=== PATIENT | female | born 1965 | race Caucasian/White ===

== ENCOUNTER → 2017-01-16 | Outpatient (REF) | payer OTHER ==
[2017-01-16 11:33] LABS: BASO # 0.1 K/mm3 (0.0-0.2); BASO % 0.9 % (0.0-1.0); EOS # 0.4 K/mm3 (0.0-0.50); EOS % 5.6 % (0.0-3.0); LARGE UNSTAINED CELL # 0.1 K/mm3 (0.0-0.4); LARGE UNSTAINED CELL % 1.8 % (0.0-4.0); LYMPH # 3.3 K/mm3 (1.5-4.5); LYMPH % 48.5 % (24.0-44.0); MEAN CORPUSCULAR HEMOGLOBIN 25.2 pg (27.0-33.0); MEAN CORPUSCULAR HGB CONC 31.7 g/dl (32.0-36.5); MEAN CORPUSCULAR VOLUME 79.4 fl (80.0-96.0); MONO # 0.3 K/mm3 (0.0-0.8); MONO % 4.9 % (0.0-5.0); NEUTROPHILS # 2.5 K/mm3 (1.8-7.7); NEUTROPHILS % 38.4 % (36.0-66.0); PLATELET COUNT, AUTOMATED 303 k/mm3 (150-450); RED CELL DISTRIBUTION WIDTH 16.9 % (11.5-14.5); WHITE BLOOD COUNT 6.6 K/mm3 (4.0-10.0)
[2017-01-16 12:13] LABS: VITAMIN B12 LEVEL 267 PG/ML
[2017-01-16 12:20] LABS: ALBUMIN 3.8 GM/DL (3.2-5.2); ALBUMIN/GLOBULIN RATIO 1.09 (1.00-1.93); ALKALINE PHOSPHATASE 152 U/L (45-117); ALT/SGPT 47 U/L (12-78); ANION GAP 10 MEQ/L (8-16); AST/SGOT 64 U/L (15-37); BILIRUBIN,TOTAL 0.3 MG/DL (0.2-1.0); BLOOD UREA NITROGEN 12 MG/DL (7-18); CALCIUM LEVEL 8.8 MG/DL (8.5-10.1); CARBON DIOXIDE LEVEL 25 MEQ/L (21-32); CHLORIDE LEVEL 99 MEQ/L (98-107); CREATININE FOR GFR 0.55 MG/DL (0.55-1.02); GLOMERULAR FILTRATION RATE > 60.0 (>51); GLUCOSE, FASTING 108 MG/DL (70-105); POTASSIUM SERUM 4.2 MEQ/L (3.5-5.1); SODIUM LEVEL 134 MEQ/L (136-145); TOTAL PROTEIN 7.3 GM/DL (6.4-8.2)
[2017-01-16 12:40] LABS: FOLATE 7.8 NG/ML
[2017-01-16 12:50] LABS: ERYTHROCYTE SEDIMENTATION RATE 28 mm/hr (0-30)
[2017-01-19 00:07] LABS: VITAMIN E LEVEL 5.1 mg/L (5.3-16.8)
== END ==
LOC: M LABNEURO 11:09
PROVIDERS: ATTEND Psychiatry & Neurology Neurology
DX: R41.0 Disorientation, unspecified (principal); R20.2 Paresthesia of skin; E07.9 Disorder of thyroid, unspecified; D51.9 Vitamin B12 deficiency anemia, unspecified

== ENCOUNTER → 2017-06-12 | Outpatient (REF) | payer OTHER ==
[2017-06-12 16:42] LABS: BASO # 0.1 10^3/uL (0.0-0.2); BASO % 0.7 % (0.0-1.0); EOS # 0.4 10^3/uL (0.0-0.50); EOS % 4.6 % (0.0-3.0); IMMATURE GRANULOCYTE % 0.2 % (0-0); LYMPH % 31.3 % (24.0-44.0); MEAN CORPUSCULAR HEMOGLOBIN 22.9 pg (27.0-33.0); MEAN CORPUSCULAR HGB CONC 29.6 g/dl (32.0-36.5); MEAN CORPUSCULAR VOLUME 77.3 fl (80.0-96.0); MONO # 0.7 10^3/uL (0.0-0.8); MONO % 7.8 % (0.0-5.0); NEUTROPHILS # 5.3 10^3/uL (1.8-7.7); NEUTROPHILS % 55.4 % (36.0-66.0); PLATELET COUNT, AUTOMATED 333 10^3/uL (150-450); RED CELL DISTRIBUTION WIDTH 15.9 % (11.5-14.5); WHITE BLOOD COUNT 9.5 10^3/uL (4.0-10.0)
[2017-06-12 17:22] LABS: ALBUMIN 3.9 GM/DL (3.2-5.2); ALBUMIN/GLOBULIN RATIO 1.08 (1.00-1.93); ALKALINE PHOSPHATASE 134 U/L (45-117); ALT/SGPT 51 U/L (12-78); ANION GAP 8 MEQ/L (8-16); AST/SGOT 33 U/L (7-37); BILIRUBIN,TOTAL 0.3 MG/DL (0.2-1.0); BLOOD UREA NITROGEN 10 MG/DL (7-18); CALCIUM LEVEL 9.3 MG/DL (8.5-10.1); CARBON DIOXIDE LEVEL 30 MEQ/L (21-32); CHLORIDE LEVEL 101 MEQ/L (98-107); CREATININE FOR GFR 0.68 MG/DL (0.55-1.02); GLOMERULAR FILTRATION RATE > 60.0 (>51); GLUCOSE, FASTING 115 MG/DL (70-105); POTASSIUM SERUM 4.5 MEQ/L (3.5-5.1); SODIUM LEVEL 139 MEQ/L (136-145); TOTAL PROTEIN 7.5 GM/DL (6.4-8.2)
[2017-06-12 20:02] LABS: VITAMIN B12 LEVEL 458 PG/ML (247-911)
== END ==
LOC: M LABNEURO 14:47
PROVIDERS: ATTEND Psychiatry & Neurology Neurology
DX: R41.0 Disorientation, unspecified (principal); E53.9 Vitamin B deficiency, unspecified; R20.0 Anesthesia of skin

== ENCOUNTER → 2018-07-19 | Outpatient (REF) | payer OTHER | LOC: M LAB REF 11:13 | PROVIDERS: ATTEND Otolaryngology | DX: D37.09 Neoplasm of uncertain behavior of other specified sites of the oral cavity (principal) ==

== ENCOUNTER → 2019-04-10 | Outpatient (CLI) | payer OTHER ==
--- NOTE | 2019-04-10 13:23 | REP ---
Clinical: Lower back pain. Technique: AP, lateral, bilateral oblique, and coned-down views. Findings: Alignment and lordosis is maintained. The vertebral bodies including transverse process and spinous processes are intact and normal. There is no evidence for acute fracture / compression injury or subluxation. No evidence for spondylolysis or spondylolisthesis. No significant degenerative change is noted. Impression: Normal age-appropriate lumbosacral spine radiograph series. Electronically Signed by Primitivo Martinez MD 04/10/2019 01:14 P
--- NOTE | 2019-04-10 13:28 | REP ---
Clinical: Bilateral knee pain. Technique: AP, lateral, bilateral oblique and sunrise views of the right and left knee. Findings: Left knee demonstrates anterior swelling and possible small effusion along with lateral patellar osteophyte and mild patellofemoral joint space narrowing as well as increased sclerosis along the anterior patellar margin suggesting tendinopathy. No acute fracture or dislocation. Right knee is relatively age-appropriate and without obvious degenerative changes. No acute fracture dislocation. Impression: Mild degenerative changes of the left knee. Electronically Signed by Primitivo Martinez MD 04/10/2019 01:20 P
== END ==
LOC: M RAD 12:01
PROVIDERS: ATTEND Physician Assistant
DX: M17.12 Unilateral primary osteoarthritis, left knee (principal)

== ENCOUNTER → 2019-07-21 | Outpatient (CLI) | payer OTHER ==
--- NOTE | 2019-07-22 09:39 | REP ---
MRI lumbar spine: 07/21/2019. Indication: Low back pain. New comparison: None. Technique: Multiplanar short and long TR sequences of the lumbar spine were performed without IV Gadolinium. Findings: Vertebral body alignment is anatomic. Dessication is present at L5/S1 and to a lesser extent L2/L3. No worrisome marrow or cord signal abnormalities are present. No significant paraspinal soft tissue abnormalities are present. L1/L2, L2/L3, L3/L4 and L4/L5: There is no focal disc herniation or significant spinal canal / neural foraminal narrowing. L5/S1: There is a small posterior central annular fissure. Mild diffuse disc bulge is present. Mild spinal canal and neural foraminal narrowing is present. Impression: Degenerative sequelae at L5/S1 without significant spinal canal narrowing/nerve root impingement. The neural foramina are patent throughout. Electronically Signed by Tushar Arnold DO 07/22/2019 09:30 A
== END ==
LOC: M RAD 16:22
PROVIDERS: ATTEND Physician Assistant
DX: M51.37 Other intervertebral disc degeneration, lumbosacral region (principal)

== ENCOUNTER → 2020-02-03 | Outpatient (REF) | payer OTHER ==
[2020-02-03 15:57] LABS: APPEARANCE, URINE HAZY (CLEAR); BACTERIA, URINE AUTO NEGATIVE (NEGATIVE); BILIRUBIN, URINE AUTO NEGATIVE (NEGATIVE); BLOOD, URINE BLOOD NEGATIVE (NEGATIVE); CALCIUM OXALATE CRYSTALS LARGE; COLOR, URINE AMBER (YELLOW); GLUCOSE, URINE (UA) AUTO NEGATIVE (NEGATIVE); KETONE, URINE AUTO NEGATIVE (NEGATIVE); LEUKOCYTE ESTERASE, URINE AUTO NEGATIVE (NEGATIVE); MUCUS, URINE SMALL (NEGATIVE); NITRITE, URINE AUTO NEGATIVE (NEGATIVE); PROTEIN, URINE AUTO NEGATIVE (NEGATIVE); RBC, URINE AUTO 1 /HPF (0-3); SPECIFIC GRAVITY URINE AUTO 1.018 (1.002-1.035); SQUAMOUS EPITHELIAL CELL UR AU 1 /HPF (0-6); WBC, URINE AUTO 1 /HPF (0-3)
== END ==
LOC: M SMT 14:46
PROVIDERS: ATTEND Nurse Practitioner Women's Health
DX: N39.41 Urge incontinence (principal)

== ENCOUNTER → 2020-05-26 | Outpatient (CLI) | payer OTHER ==
[~2020-05-26] MED LIST: AMIT25TA; AMLO1TAB24; BUPR15TASR; CRES10TA; DULO1CAP5 PO; E-Z-GAS II EFFERVESCENT PACKET (SODIUM BICARB./CITRIC ACID/SIMETHICONE) As Ordered ONE; E-Z-HD 98% w/w 340GM SUSP BTL As Ordered ONE; E-Z-PAQUE 96% w/w SUSP 176GM BTL As Ordered ONE; GABA600T4; HYDR50TA70; LOTR52CA PO; OMEP-221; SYNT100T; SYNT88TA2; TIZA4TAB4; TRAM50TA2; VITA-157 PO; VITA50005; VITACAP8 PO
--- NOTE | 2020-05-26 15:43 | REP ---
INDICATION: DYSPHAGIA COMPARISON: None TECHNIQUE: This procedure was performed by Margaret Merritt [facility], under the direct supervision of Dr. Hoover. Images were reviewed with Dr. Hoover prior to dictation. Liquid barium was given in the erect position, as well as in the prone oblique position in order to perform a single contrast upper GI examination, due to the patient's history of Aleena-en-Y surgery. FINDINGS: A single view PA chest x-ray is submitted as a vc++ developer film. There appears to be no change since the previous text chest x-ray dated 08/10/2008. The oral and pharyngeal stages of deglutition were unremarkable. However flash laryngeal penetration was visualized. Esophageal transport is prompt and efficient and there is no evidence of esophagitis, stricture, or mucosal ring. There is a small hiatal hernia. Gastroesophageal reflux was visualized to the level of the thoracic inlet. IMPRESSION: 1. Flash laryngeal penetration. 2. Small hiatal hernia. 3. Gastroesophageal reflux to the level of the thoracic inlet. 0.3 minutes of fluoroscopy time was utilized for this procedure. Some fluoroscopic images are performed with last image hold technology. These images require no additional radiation. <Electronically signed by Margaret Merritt > 05/26/20 1522 <Electronically signed by Srinivas Hoover > 05/26/20 0183
== END ==
LOC: M RAD 07:16
PROVIDERS: ATTEND Nurse Practitioner
DX: K21.9 Gastro-esophageal reflux disease without esophagitis (principal); R13.10 Dysphagia, unspecified

== ENCOUNTER → 2020-06-05 | Outpatient (CLI) | payer OTHER ==
[~2020-06-05] MED LIST changes: -E-Z-GAS II EFFERVESCENT PACKET (SODIUM BICARB./CITRIC ACID/SIMETHICONE) As Ordered ONE; -E-Z-HD 98% w/w 340GM SUSP BTL As Ordered ONE; -E-Z-PAQUE 96% w/w SUSP 176GM BTL As Ordered ONE
== END ==
LOC: M LABSMTC 09:10
PROVIDERS: ATTEND Anesthesiology
DX: Z01.818 Encounter for other preprocedural examination (principal); Z20.828 Contact with and (suspected) exposure to other viral communicable diseases
CPT/HCPCS: C9803; U0003

== ENCOUNTER 2020-06-10 07:53 | Day surgery (SDC) | payer OTHER ==
[~2020-06-10] VITALS: Ht 167.6 cm; Wt 112.5 kg
[~2020-06-10 07:53] MED LIST changes: +LIDOCAINE 2% 100MG/5ML SDV (FOR ANES.) As Ordered ONE; +NS 1,000 ML IV ONE
[2020-06-10] MEDS ORDERED: fentaNYL 100 MCG/2 ML INJECTION (J3010) As Ordered ONE (08:47)
[2020-06-10] MEDS ORDERED: propofoL 500 MG/50 ML VIAL As Ordered ONE (08:48)
--- NOTE | 2020-06-10 09:25 | ROOR ---
Patient Name: Madison More Procedure Date: 06/10/2020 9:04 AM Date of : 1965 Age: 54 Room: [facility] Gender: Female Note Status: Finalized Procedure: Upper GI endoscopy Indications: Oropharyngeal phase dysphagia Providers: Maxwell London Jr, MD Referring MD: LAVERNE WEN Requesting Provider: Medicines: Propofol per Anesthesia Complications: No immediate complications. Procedure: Pre-Anesthesia Assessment: - Prior to the procedure, a History and Physical was performed, and patient medications and allergies were reviewed. The patient is competent. The risks and benefits of the procedure and the sedation options and risks were discussed with the patient. All questions were answered and informed consent was obtained. Patient identification and proposed procedure were verified by the physician and the nurse in the pre-procedure area and in the procedure room. Mental Status Examination: alert and oriented. Airway Examination: normal oropharyngeal airway and neck mobility. Respiratory Examination: clear to auscultation. CV Examination: normal. ASA Grade Assessment: III - A patient with severe systemic disease. After reviewing the risks and benefits, the patient was deemed in satisfactory condition to undergo the procedure. The anesthesia plan was to use moderate sedation / analgesia (conscious sedation). Immediately prior to administration of medications, the patient was re-assessed for adequacy to receive sedatives. The heart rate, respiratory rate, oxygen saturations, blood pressure, adequacy of pulmonary ventilation, and response to care were monitored throughout the procedure. The physical status of the patient was re-assessed after the procedure. The Endoscope was introduced through the mouth, and advanced to the jejunum. The upper GI endoscopy was accomplished without difficulty. The patient tolerated the procedure well. Findings: The upper third of the esophagus, middle third of the esophagus and lower third of the esophagus were normal. Evidence of a gastric bypass was found. A gastric pouch with a normal size was found. The staple line appeared intact. The gastrojejunal anastomosis was characterized by healthy appearing mucosa. This was traversed. The [id number] limb was characterized by healthy appearing mucosa. A single small semi-sessile polyp with no bleeding and no stigmata of recent bleeding was found in the gastric body. The polyp was removed with a cold biopsy forceps. Polyp resection was incomplete. The resected tissue was retrieved. The examined jejunum was normal. Impression: - Normal upper third of esophagus, middle third of esophagus and lower third of esophagus. - Gastric bypass with a normal-sized pouch and intact staple line. Gastrojejunal anastomosis characterized by healthy appearing mucosa. - A single gastric polyp. Incomplete resection. Resected tissue retrieved. - Normal examined jejunum. Recommendation: - Discharge patient to home (ambulatory). - Return to my office in 2 weeks. Maxwell London MD Maxwell London Jr, MD 06/10/2020 9:25:23 AM Electronically signed by Maxwell London Jr, MD Number of Addenda: 0 Note Initiated On: 06/10/2020 9:04 AM Estimated Blood Loss: Estimated blood loss: none.
[2020-06-10] MEDS ORDERED: propofoL 200 MG/20 ML VIAL As Ordered ONE (09:44)
--- NOTE | 2020-06-10 09:45 | ROOR ---
Patient Name: Madison More Procedure Date: 06/10/2020 9:07 AM Date of : 1965 Age: 54 Room: [facility] Gender: Female Note Status: Finalized Procedure: Colonoscopy Indications: Screening for colorectal malignant neoplasm Providers: Maxwell London Jr, MD Referring MD: LAVERNE WEN Requesting Provider: Medicines: Propofol per Anesthesia Complications: No immediate complications. Procedure: Pre-Anesthesia Assessment: - Prior to the procedure, a History and Physical was performed, and patient medications and allergies were reviewed. The patient is competent. The risks and benefits of the procedure and the sedation options and risks were discussed with the patient. All questions were answered and informed consent was obtained. Patient identification and proposed procedure were verified by the physician and the nurse in the pre-procedure area and in the procedure room. Mental Status Examination: alert and oriented. Airway Examination: normal oropharyngeal airway and neck mobility. Respiratory Examination: clear to auscultation. CV Examination: normal. ASA Grade Assessment: III - A patient with severe systemic disease. After reviewing the risks and benefits, the patient was deemed in satisfactory condition to undergo the procedure. The anesthesia plan was to use moderate sedation / analgesia (conscious sedation). Immediately prior to administration of medications, the patient was re-assessed for adequacy to receive sedatives. The heart rate, respiratory rate, oxygen saturations, blood pressure, adequacy of pulmonary ventilation, and response to care were monitored throughout the procedure. The physical status of the patient was re-assessed after the procedure. The Colonoscope was introduced through the anus and advanced to the cecum, identified by appendiceal orifice and ileocecal valve. The colonoscopy was performed without difficulty. The patient tolerated the procedure well. The quality of the bowel preparation was adequate. Findings: The rectum, recto-sigmoid colon, sigmoid colon, descending colon, transverse colon, hepatic flexure, cecum, appendiceal orifice and ileocecal valve appeared normal. A diminutive polyp was found in the ascending colon. The polyp was sessile. The polyp was removed with a jumbo cold forceps. Resection and retrieval were complete. Non-bleeding external and internal hemorrhoids were found during endoscopy. The hemorrhoids were moderate. Impression: - The rectum, recto-sigmoid colon, sigmoid colon, descending colon, transverse colon, hepatic flexure, cecum, appendiceal orifice and ileocecal valve are normal. - One diminutive polyp in the ascending colon, removed with a jumbo cold forceps. Resected and retrieved. - Non-bleeding external and internal hemorrhoids. Recommendation: - Repeat colonoscopy in 5-10 years for surveillance of multiple polyps. Maxwell London MD Maxwell London Jr, MD 06/10/2020 9:44:37 AM Electronically signed by Maxwell London Jr, MD Number of Addenda: 0 Note Initiated On: 06/10/2020 9:07 AM Estimated Blood Loss: Estimated blood loss: none.
[2020-06-10 10:09] VITALS: BP 133/86
== END 2020-06-10 10:16 | disposition home or self-care (01) ==
LOC: M OPP 07:53
PROVIDERS: ATTEND Surgery
DX: Z12.11 Encounter for screening for malignant neoplasm of colon (principal); K64.8 Other hemorrhoids; K63.5 Polyp of colon; Z98.84 Bariatric surgery status; K31.7 Polyp of stomach and duodenum; R13.12 Dysphagia, oropharyngeal phase; Z79.899 Other long term (current) drug therapy; Z88.0 Allergy status to penicillin; Z88.8 Allergy status to other drugs, medicaments and biological substances; Z87.891 Personal history of nicotine dependence
CPT/HCPCS: 43239; 45380; 88305; J3010

== ENCOUNTER → 2020-07-13 | Outpatient (CLI) | payer SELFPAY ==
[~2020-07-13] MED LIST changes: -LIDOCAINE 2% 100MG/5ML SDV (FOR ANES.) As Ordered ONE; -NS 1,000 ML IV ONE
== END ==
LOC: M LABSMTC 18:35
PROVIDERS: ATTEND Pediatrics
DX: Z11.59 Encounter for screening for other viral diseases (principal)

== ENCOUNTER → 2020-08-25 | Outpatient (REF) | payer OTHER ==
[~2020-08-25] MED LIST changes: -AMIT25TA; +AMIT25TA17
== END ==
LOC: M LAB REF 18:37
PROVIDERS: ATTEND Surgery
DX: D17.24 Benign lipomatous neoplasm of skin and subcutaneous tissue of left leg (principal)

== ENCOUNTER → 2021-08-03 | Outpatient (CLI) | payer OTHER ==
[~2021-08-03] MED LIST changes: +ERGO500029; -VITA-157 PO; -VITA50005; +VITAE40CA PO
--- NOTE | 2021-08-03 13:03 | REP ---
INDICATION: BILATERAL THUMB PAIN AT BASES X 2 MONTHS COMPARISON: None. TECHNIQUE: AP, lateral, bilateral oblique views right and left hand. FINDINGS: The bilateral hands demonstrate relatively symmetric moderate osteoarthritic degenerative changes primarily involving the interphalangeal joints and most notably involving the bilateral 2nd distal interphalangeal joints (right greater than left). Generalized findings include subchondral sclerosis with joint space narrowing and very subtle marginal spurring while the 2nd DIP joints demonstrate significant periarticular sclerosis with subtle subchondral cystic changes, joint space obliteration and pronounced osteophytosis. Both hands are otherwise without evidence for acute or healed injury. Surrounding soft tissues are normal. 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 <Electronically signed by Primitivo Martinez > 08/03/21 2122
[2021-08-03 14:15] LABS: HEMATOCRIT 42.3 % (36.0-47.0); MEAN CORPUSCULAR HEMOGLOBIN 29.7 pg (27.0-33.0); MEAN CORPUSCULAR HGB CONC 33.1 g/dl (32.0-36.5); MEAN CORPUSCULAR VOLUME 89.6 fl (80.0-96.0); PLATELET COUNT, AUTOMATED 229 10^3/uL (150-450); RED BLOOD COUNT 4.72 10^6/uL (4.00-5.40); WHITE BLOOD COUNT 6.1 10^3/uL (4.0-10.0)
[2021-08-03 14:29] LABS: APPEARANCE, URINE HAZY (CLEAR); BACTERIA, URINE AUTO 1+ (NEGATIVE); BILIRUBIN, URINE AUTO NEGATIVE (NEGATIVE); BLOOD, URINE BLOOD NEGATIVE (NEGATIVE); COLOR, URINE YELLOW (YELLOW); GLUCOSE, URINE (UA) AUTO NEGATIVE (NEGATIVE); KETONE, URINE AUTO NEGATIVE (NEGATIVE); LEUKOCYTE ESTERASE, URINE AUTO NEGATIVE (NEGATIVE); NITRITE, URINE AUTO NEGATIVE (NEGATIVE); PROTEIN, URINE AUTO NEGATIVE (NEGATIVE); RBC, URINE AUTO 0 /HPF (0-3); SPECIFIC GRAVITY URINE AUTO 1.008 (1.002-1.035); SQUAMOUS EPITHELIAL CELL UR AU 2 /HPF (0-6); WBC, URINE AUTO 2 /HPF (0-3)
[2021-08-03 14:57] LABS: ALBUMIN 3.7 GM/DL (3.2-5.2); ALT/SGPT 46 U/L (12-78); BILIRUBIN,TOTAL 0.5 MG/DL (0.2-1.0); BLOOD UREA NITROGEN 16 MG/DL (7-18); CARBON DIOXIDE LEVEL 29 MEQ/L (21-32); CHLORIDE LEVEL 99 MEQ/L (98-107); CHOLESTEROL LEVEL 152 MG/DL (<200); CHOLESTEROL RISK RATIO 2.714 (<5); CREATININE FOR GFR 0.56 MG/DL (0.55-1.30); GLOMERULAR FILTRATION RATE > 60.0 (>51); GLUCOSE, FASTING 123 MG/DL (70-100); HDL CHOLESTEROL 56 MG/DL (>40); NON-HDL-C 96 MG/DL; POTASSIUM SERUM 4.5 MEQ/L (3.5-5.1); SODIUM LEVEL 135 MEQ/L (136-145); THYROID STIMULATING HORMONE 0.966 uIU/ML (0.358-3.740); TOTAL PROTEIN 6.8 GM/DL (6.4-8.2); TRIGLYCERIDES LEVEL 420 MG/DL (<150)
== END ==
LOC: M PLAIMG 12:04
PROVIDERS: ATTEND Physician Assistant
DX: M19.041 Primary osteoarthritis, right hand (principal); M19.042 Primary osteoarthritis, left hand; I10 Essential (primary) hypertension; E03.9 Hypothyroidism, unspecified; E11.9 Type 2 diabetes mellitus without complications; E55.9 Vitamin D deficiency, unspecified; E78.5 Hyperlipidemia, unspecified; M25.541 Pain in joints of right hand; M25.542 Pain in joints of left hand

== ENCOUNTER 2021-10-17 11:54 | Emergency (ER) | payer OTHER ==
[2021-10-17 11:54] VITALS: BP 147/68
[~2021-10-17 11:54] MED LIST changes: -OMEP-221; +OMEP40CA5; +TIZA10TA; -TIZA4TAB4
[2021-10-17] MEDS ORDERED: TETRACAINE 0.5% OPHTH SOLN 4ML OS ONE (13:00)
[2021-10-17] MEDS ORDERED: FLUORESCEIN OPHTH 1 MG STRIP OS ONE (13:00)
[2021-10-17] MEDS ORDERED: ERYT5OIN25 OS (13:23)
== END 2021-10-17 13:33 | disposition home or self-care (01) ==
LOC: M ED 11:54
DX: H16.002 Unspecified corneal ulcer, left eye (principal); H01.004 Unspecified blepharitis left upper eyelid; Z79.899 Other long term (current) drug therapy; Z88.0 Allergy status to penicillin; Z88.6 Allergy status to analgesic agent; Z88.8 Allergy status to other drugs, medicaments and biological substances

== ENCOUNTER → 2021-11-23 | Outpatient (CLI) | payer OTHER ==
[~2021-11-23] MED LIST changes: +ERYT5OIN25 OS
== END ==
LOC: M PLAIMG 09:53
PROVIDERS: ATTEND Physician Assistant
DX: M25.512 Pain in left shoulder (principal)

== ENCOUNTER → 2022-06-06 | Outpatient (REF) | payer OTHER | LOC: M SFHCDERM 12:27 | PROVIDERS: ATTEND Nurse Practitioner Family | DX: L98.8 Other specified disorders of the skin and subcutaneous tissue (principal) ==

== ENCOUNTER → 2022-09-27 | Outpatient (REF) | payer OTHER ==
[2022-09-27 13:43] LABS: BASO % 0.6 % (0.0-1.0); EOS # 0.2 10^3/uL (0.0-0.5); EOS % 3.3 % (0.0-3.0); HEMATOCRIT 41.6 % (36.0-47.0); HEMOGLOBIN 13.7 g/dl (12.0-15.5); LYMPH % 45.7 % (24.0-44.0); MEAN CORPUSCULAR HEMOGLOBIN 30.3 pg (27.0-33.0); MEAN CORPUSCULAR HGB CONC 32.9 g/dl (32.0-36.5); MONO # 0.7 10^3/uL (0.0-0.8); MONO % 10.8 % (2.0-8.0); NEUTROPHILS # 2.6 10^3/uL (1.5-8.5); NEUTROPHILS % 39.3 % (36.0-66.0); PLATELET COUNT, AUTOMATED 225 10^3/uL (150-450); RED BLOOD COUNT 4.52 10^6/uL (4.00-5.40); WHITE BLOOD COUNT 6.7 10^3/uL (4.0-10.0)
[2022-09-27 14:10] LABS: ALBUMIN 3.3 G/DL (3.2-5.2); ALKALINE PHOSPHATASE 124 U/L (46-116); ALT/SGPT 34 U/L (7.0-40); AST/SGOT 34 U/L (<34); BILIRUBIN,TOTAL 0.3 MG/DL (0.3-1.2); BLOOD UREA NITROGEN 12 MG/DL (9-23); CALCIUM LEVEL 9.1 MG/DL (8.5-10.1); CARBON DIOXIDE LEVEL 28 MMOL/L (20-31); CHLORIDE LEVEL 103 MMOL/L (98-107); CREATININE FOR GFR 0.58 MG/DL (0.55-1.30); GLOMERULAR FILTRATION RATE > 60.0 (>51); GLUCOSE, FASTING 133 MG/DL (60-100); POTASSIUM SERUM 4.9 MMOL/L (3.5-5.1); SODIUM LEVEL 139 MMOL/L (136-145)
[2022-09-27 14:56] LABS: ERYTHROCYTE SEDIMENTATION RATE 12 mm/hr (0-30)
[2022-09-27 18:43] LABS: TOTAL PROTEIN 6.3 G/DL (5.7-8.2)
== END ==
LOC: M SFHCADAM 09:37
PROVIDERS: ATTEND Nurse Practitioner Family
DX: M25.50 Pain in unspecified joint (principal); L40.0 Psoriasis vulgaris

== ENCOUNTER → 2022-10-24 | Outpatient (CLI) | payer OTHER | LOC: M ADAMS 14:11 | PROVIDERS: ATTEND Nurse Practitioner Family | DX: L40.0 Psoriasis vulgaris (principal); M25.50 Pain in unspecified joint ==

== ENCOUNTER → 2023-04-12 | Outpatient (REF) | payer OTHER ==
[~2023-04-12] MED LIST changes: -AMIT25TA17; +AMIT25TA19
[2023-04-12 22:27] LABS: HEMATOCRIT 41.3 % (36.0-47.0); HEMOGLOBIN 12.9 g/dl (12.0-15.5); MEAN CORPUSCULAR HEMOGLOBIN 28.8 pg (27.0-33.0); MEAN CORPUSCULAR HGB CONC 31.2 g/dl (32.0-36.5); MEAN CORPUSCULAR VOLUME 92.2 fl (80.0-96.0); PLATELET COUNT, AUTOMATED 237 10^3/uL (150-450); RED BLOOD COUNT 4.48 10^6/uL (4.00-5.40)
[2023-04-12 22:39] LABS: HEMOGLOBIN A1c 6.6 % (4.0-6.0)
[2023-04-12 22:49] LABS: CREATININE, URINE 130.1 MG/DL; MAU/CREAT RATIO 3.8 MCG/MG (0.0-30.0)
[2023-04-12 23:41] LABS: ALBUMIN 3.1 G/DL (3.2-5.2); ALKALINE PHOSPHATASE 113 U/L (46-116); ALT/SGPT 37 U/L (7.0-40); AST/SGOT 50 U/L (<34); BILIRUBIN,TOTAL 0.2 MG/DL (0.3-1.2); BLOOD UREA NITROGEN 8 MG/DL (9-23); CALCIUM LEVEL 8.4 MG/DL (8.5-10.1); CARBON DIOXIDE LEVEL 24 MMOL/L (20-31); CHLORIDE LEVEL 102 MMOL/L (98-107); CHOLESTEROL LEVEL 119 MG/DL (<200); FOLATE 21.3 NG/ML (>5.4); GLOMERULAR FILTRATION RATE > 60.0 (>51); GLUCOSE, FASTING 236 MG/DL (60-100); POTASSIUM SERUM 4.8 MMOL/L (3.5-5.1); SODIUM LEVEL 134 MMOL/L (136-145); THYROID STIMULATING HORMONE 1.115 uIU/ML (0.55-4.78); TOTAL PROTEIN 6.1 G/DL (5.7-8.2); TRIGLYCERIDES LEVEL 282 MG/DL (<150); VITAMIN B12 LEVEL 267 PG/ML (211-911)
[2023-04-13 03:38] LABS: CHOLESTEROL RISK RATIO 2.86 (<5); HDL CHOLESTEROL 41.6 MG/DL (>40); NON-HDL-C 77.4 MG/DL
== END ==
LOC: M LAB REF 21:53
PROVIDERS: ATTEND Physician Assistant
DX: I10 Essential (primary) hypertension (principal); E11.9 Type 2 diabetes mellitus without complications; E78.5 Hyperlipidemia, unspecified; E03.9 Hypothyroidism, unspecified; D51.9 Vitamin B12 deficiency anemia, unspecified; D52.0 Dietary folate deficiency anemia

== ENCOUNTER → 2023-05-18 | Outpatient (REF) | payer OTHER ==
[2023-05-18 17:04] LABS: BASO % 0.6 % (0.0-1.0); EOS # 0.3 10^3/uL (0.0-0.5); EOS % 3.9 % (0.0-3.0); HEMATOCRIT 41.4 % (36.0-47.0); HEMOGLOBIN 13.7 g/dl (12.0-15.5); LYMPH # 2.6 10^3/uL (1.5-5.0); LYMPH % 41.4 % (24.0-44.0); MEAN CORPUSCULAR HEMOGLOBIN 29.3 pg (27.0-33.0); MEAN CORPUSCULAR HGB CONC 33.1 g/dl (32.0-36.5); MEAN CORPUSCULAR VOLUME 88.7 fl (80.0-96.0); MONO # 0.6 10^3/uL (0.0-0.8); MONO % 9.3 % (2.0-8.0); NEUTROPHILS # 2.8 10^3/uL (1.5-8.5); NEUTROPHILS % 44.5 % (36.0-66.0); PLATELET COUNT, AUTOMATED 232 10^3/uL (150-450); RED BLOOD COUNT 4.67 10^6/uL (4.00-5.40); WHITE BLOOD COUNT 6.4 10^3/uL (4.0-10.0)
[2023-05-18 17:21] LABS: APPEARANCE, URINE HAZY (CLEAR); BACTERIA, URINE AUTO 1+ (NEGATIVE); BILIRUBIN, URINE AUTO NEGATIVE (NEGATIVE); BLOOD, URINE BLOOD NEGATIVE (NEGATIVE); COLOR, URINE YELLOW (YELLOW); GLUCOSE, URINE (UA) AUTO NEGATIVE (NEGATIVE); KETONE, URINE AUTO NEGATIVE (NEGATIVE); LEUKOCYTE ESTERASE, URINE AUTO NEGATIVE (NEGATIVE); MUCUS, URINE SMALL (NEGATIVE); NITRITE, URINE AUTO NEGATIVE (NEGATIVE); PROTEIN, URINE AUTO NEGATIVE (NEGATIVE); RBC, URINE AUTO 2 /HPF (0-3); SPECIFIC GRAVITY URINE AUTO 1.017 (1.002-1.035); SQUAMOUS EPITHELIAL CELL UR AU 2 /HPF (0-6); WBC, URINE AUTO 3 /HPF (0-3)
[2023-05-18 17:28] LABS: PHOSPHORUS LEVEL 3.9 MG/DL (2.5-4.9)
[2023-05-18 17:30] LABS: COMPLEMENT C3 172.1 MG/DL (90.0-170.0); COMPLEMENT C4 35.4 MG/DL (12-36)
[2023-05-18 17:32] LABS: TOTAL 25(OH) VITAMIN D 6.4 NG/ML (20.0-100.0)
[2023-05-18 17:38] LABS: TOTAL PROTEIN,RANDOM URINE 12.8 MG/DL (0.0-14.0)
[2023-05-18 17:43] LABS: CREATININE,RANDOM URINE 81.3 MG/DL
[2023-05-21 12:45] LABS: DRVV SCREEN 34.8 SECONDS
[2023-05-21 12:49] LABS: PTT LUPUS TYPE ANTICOAG SCREEN 0.95 (0-1.20)
[2023-05-29 01:06] LABS: COMPLEMENT TOTAL (CH50) > 60 U/mL (>41); HLA-B27 Negative (.); NICOTINAMIDE 88.1 ng/mL (5.2-72.1); NICOTINIC ACID <5.0 ng/mL (0.0-5.0); VITAMIN B1 LEVEL WHOLE BLOOD 208.9 nmol/L (66.5-200.0); VITAMIN B2 (RIBOFLAVIN) 300 ug/L (137-370); VITAMIN B7 (BIOTIN) 0.26 ng/mL (0.05-0.83); VITAMIN C, ASCORBIC ACID 1.7 mg/dL (0.4-2.0)
== END ==
LOC: M SFHCRHEU 15:29
PROVIDERS: ATTEND Internal Medicine
DX: R76.8 Other specified abnormal immunological findings in serum (principal); L40.9 Psoriasis, unspecified; R53.83 Other fatigue; M79.10 Myalgia, unspecified site
CPT/HCPCS: 36415; 81001; 81374; 82180; 82306; 82550; 82570; 83540; 83735; 84100; 84156; 84207; 84252; 84425; 84591; 85025; 85730; 86160; 86162; G0463; G2212

== ENCOUNTER → 2023-08-09 | Outpatient (REF) | payer OTHER | LOC: M SFHCDERM 12:52 | PROVIDERS: ATTEND Nurse Practitioner Family | DX: R21 Rash and other nonspecific skin eruption (principal) | CPT/HCPCS: 11104; 87070; 87077; 87186; 96372; G0463; J3301 ==

== ENCOUNTER → 2023-09-05 | Outpatient (REF) | payer OTHER | LOC: M LABDRWAD 16:01 | PROVIDERS: ATTEND Nurse Practitioner Family | DX: L40.0 Psoriasis vulgaris (principal) ==

== ENCOUNTER → 2023-09-21 | Outpatient (REF) | payer OTHER | LOC: M LAB REF 08:27 | PROVIDERS: ATTEND Otolaryngology | DX: R68.2 Dry mouth, unspecified (principal) ==

== ENCOUNTER → 2023-10-12 | Outpatient (CLI) | payer OTHER ==
[2023-10-12 14:57] LABS: HEMOGLOBIN A1c 6.5 % (4.0-6.0)
== END ==
LOC: M PLALAB 10:14
PROVIDERS: ATTEND Physician Assistant
DX: E11.9 Type 2 diabetes mellitus without complications (principal)

== ENCOUNTER → 2024-03-05 | Outpatient (CLI) | payer OTHER | LOC: M WHC 08:00 | PROVIDERS: ATTEND Physician Assistant | DX: R10.811 Right upper quadrant abdominal tenderness (principal); R19.01 Right upper quadrant abdominal swelling, mass and lump ==

== ENCOUNTER → 2024-03-25 | Outpatient (CLI) | payer OTHER ==
[2024-03-25 15:23] LABS: COMPLEMENT C3 149.8 MG/DL (90.0-170.0); COMPLEMENT C4 30.1 MG/DL (12-36); IMMUNOGLOBULIN G 806 MG/DL (650-1600); RHEUMATOID FACTOR QUANT < 3.5 IU/ML (<14)
[2024-03-25 15:24] LABS: TOTAL 25(OH) VITAMIN D 11.9 NG/ML (20.0-100.0)
[2024-03-25 15:32] LABS: IMMUNOGLOBULIN E 9.3 IU/ML (0-378)
[2024-03-27 08:22] LABS: T P ELECTROPHORESIS SO 6.5 g/dL (6.1-8.1)
== END ==
LOC: M PLALAB 14:08
PROVIDERS: ATTEND Internal Medicine
DX: E55.9 Vitamin D deficiency, unspecified (principal)

== ENCOUNTER → 2024-04-29 | Outpatient (REF) | payer OTHER ==
[~2024-04-29] MED LIST changes: +GABA-1490; -GABA600T4
== END ==
LOC: M SFHCADAM 12:00
PROVIDERS: ATTEND Nurse Practitioner Family
DX: L40.0 Psoriasis vulgaris (principal)

== ENCOUNTER → 2024-06-24 | Outpatient (REF) | payer OTHER | LOC: M SFHCDERM 14:28 | PROVIDERS: ATTEND Nurse Practitioner Family | DX: L40.0 Psoriasis vulgaris (principal) ==

== ENCOUNTER → 2024-08-02 | Outpatient (CLI) | payer OTHER | LOC: M RAD 10:46 | PROVIDERS: ATTEND Internal Medicine | DX: M54.9 Dorsalgia, unspecified (principal); M46.1 Sacroiliitis, not elsewhere classified ==

== ENCOUNTER → 2024-08-22 | Outpatient (REF) | payer OTHER ==
[2024-08-22 14:34] LABS: ALBUMIN 3.4 G/DL (3.2-5.2); ALKALINE PHOSPHATASE 141 U/L (35-104); ALT/SGPT 40 U/L (7.0-40); AST/SGOT 49 U/L (<34); BILIRUBIN,DIRECT 0.2 MG/DL (<0.4); BILIRUBIN,TOTAL 0.5 MG/DL (0.3-1.2); BLOOD UREA NITROGEN 12 MG/DL (9-23); C REACTIVE PROTEIN QUANTITATIV < 0.50 MG/DL (<1.0); CALCIUM LEVEL 8.7 MG/DL (8.5-10.1); CARBON DIOXIDE LEVEL 26 MMOL/L (20-31); CHLORIDE LEVEL 99 MMOL/L (98-107); CREATININE FOR GFR 0.52 MG/DL (0.55-1.30); GLOMERULAR FILTRATION RATE > 60.0 (>51); GLUCOSE, FASTING 97 MG/DL (60-100); SODIUM LEVEL 135 MMOL/L (136-145); TOTAL PROTEIN 6.8 G/DL (5.7-8.2)
[2024-08-22 14:51] LABS: BASO % 0.4 % (0.0-1.0); EOS # 0.2 10^3/uL (0.0-0.5); EOS % 2.2 % (0.0-3.0); HEMATOCRIT 40.7 % (36.0-47.0); HEMOGLOBIN 13.4 g/dl (12.0-15.5); LYMPH # 3.4 10^3/uL (1.5-5.0); LYMPH % 34.4 % (24.0-44.0); MEAN CORPUSCULAR HEMOGLOBIN 28.9 pg (27.0-33.0); MEAN CORPUSCULAR HGB CONC 32.9 g/dl (32.0-36.5); MEAN CORPUSCULAR VOLUME 87.9 fl (80.0-96.0); MONO # 1.1 10^3/uL (0.0-0.8); MONO % 10.7 % (2.0-8.0); NEUTROPHILS # 5.1 10^3/uL (1.5-8.5); PLATELET COUNT, AUTOMATED 276 10^3/uL (150-450); RED BLOOD COUNT 4.63 10^6/uL (4.00-5.40); WHITE BLOOD COUNT 9.8 10^3/uL (4.0-10.0)
[2024-08-22 14:56] LABS: ERYTHROCYTE SEDIMENTATION RATE 18 mm/hr (0-30)
== END ==
LOC: M LABDRWAD 12:40
PROVIDERS: ATTEND Internal Medicine
DX: L40.50 Arthropathic psoriasis, unspecified (principal)

== ENCOUNTER → 2024-08-22 | Outpatient (REF) | payer OTHER ==
[2024-08-22 14:28] LABS: HEMATOCRIT 40.8 % (36.0-47.0); HEMOGLOBIN 13.3 g/dl (12.0-15.5); MEAN CORPUSCULAR HEMOGLOBIN 28.6 pg (27.0-33.0); MEAN CORPUSCULAR HGB CONC 32.6 g/dl (32.0-36.5); MEAN CORPUSCULAR VOLUME 87.7 fl (80.0-96.0); PLATELET COUNT, AUTOMATED 267 10^3/uL (150-450); RED BLOOD COUNT 4.65 10^6/uL (4.00-5.40); WHITE BLOOD COUNT 10.1 10^3/uL (4.0-10.0)
[2024-08-22 14:58] LABS: ALBUMIN 3.3 G/DL (3.2-5.2); ALKALINE PHOSPHATASE 145 U/L (35-104); ALT/SGPT 38 U/L (7.0-40); AST/SGOT 49 U/L (<34); BILIRUBIN,TOTAL 0.5 MG/DL (0.3-1.2); BLOOD UREA NITROGEN 12 MG/DL (9-23); CALCIUM LEVEL 9.3 MG/DL (8.5-10.1); CARBON DIOXIDE LEVEL 26 MMOL/L (20-31); CHLORIDE LEVEL 99 MMOL/L (98-107); CHOLESTEROL LEVEL 157 MG/DL (<200); CHOLESTEROL RISK RATIO 3.01 (<5); CREATININE FOR GFR 0.49 MG/DL (0.55-1.30); GLOMERULAR FILTRATION RATE > 60.0 (>51); GLUCOSE, FASTING 93 MG/DL (60-100); HDL CHOLESTEROL 52.1 MG/DL (>40); NON-HDL-C 104.9 MG/DL; POTASSIUM SERUM 4.9 MMOL/L (3.5-5.1); SODIUM LEVEL 134 MMOL/L (136-145); TOTAL PROTEIN 7.1 G/DL (5.7-8.2); TRIGLYCERIDES LEVEL 468 MG/DL (<150)
[2024-08-22 15:01] LABS: THYROID STIMULATING HORMONE 1.154 uIU/ML (0.55-4.78)
[2024-08-22 15:39] LABS: HEMOGLOBIN A1c 7.8 % (4.0-6.0)
== END ==
LOC: M LABDRWAD 12:41
PROVIDERS: ATTEND Physician Assistant
DX: E11.9 Type 2 diabetes mellitus without complications (principal); E78.5 Hyperlipidemia, unspecified; E03.9 Hypothyroidism, unspecified; I10 Essential (primary) hypertension; L40.0 Psoriasis vulgaris

== ENCOUNTER → 2024-08-22 | Outpatient (REF) | payer OTHER ==
[2024-08-26 11:53] LABS: QuantiFERON-TB Gold Plus NEGATIVE (NEGATIVE)
== END ==
LOC: M LABDRWAD 12:37
PROVIDERS: ATTEND Nurse Practitioner Family
DX: L40.0 Psoriasis vulgaris (principal)

== ENCOUNTER → 2025-02-12 | Outpatient (REF) | payer OTHER | LOC: M SFHCADAM 09:58 | PROVIDERS: ATTEND Nurse Practitioner Family | DX: L40.0 Psoriasis vulgaris (principal); Z79.899 Other long term (current) drug therapy; Z12.83 Encounter for screening for malignant neoplasm of skin ==

== ENCOUNTER → 2025-06-08 | Outpatient (CLI) | payer OTHER ==
[2025-06-08 15:16] LABS: BASO # 0.0 10^3/uL (0.0-0.2); BASO % 0.5 % (0.0-1.0); EOS # 0.2 10^3/uL (0.0-0.5); EOS % 2.5 % (0.0-3.0); LYMPH # 2.6 10^3/uL (1.5-5.0); LYMPH % 40.4 % (24.0-44.0); MONO # 0.8 10^3/uL (0.0-0.8); MONO % 11.9 % (2.0-8.0); NEUTROPHILS # 2.8 10^3/uL (1.5-8.5); NEUTROPHILS % 44.4 % (36.0-66.0); PLATELET COUNT, AUTOMATED 237 10^3/uL (150-450)
[2025-06-08 15:24] LABS: ALT/SGPT 35 U/L (7.0-40); AST/SGOT 32 U/L (<34); C REACTIVE PROTEIN QUANTITATIV 1.70 MG/DL (<1.0); CALCIUM LEVEL 8.5 MG/DL (8.5-10.1); CARBON DIOXIDE LEVEL 28 MMOL/L (20-31); CHLORIDE LEVEL 98 MMOL/L (98-107); CREATININE FOR GFR 0.57 MG/DL (0.55-1.30); GLOMERULAR FILTRATION RATE > 90.0 (>51); POTASSIUM SERUM 4.4 MMOL/L (3.5-5.1); SODIUM LEVEL 134 MMOL/L (136-145)
[2025-06-08 15:26] LABS: TOTAL 25(OH) VITAMIN D 13.9 NG/ML (20.0-100.0)
== END ==
LOC: M PLALAB 12:36
PROVIDERS: ATTEND Internal Medicine
DX: L40.50 Arthropathic psoriasis, unspecified (principal); E55.9 Vitamin D deficiency, unspecified; M19.041 Primary osteoarthritis, right hand; M19.042 Primary osteoarthritis, left hand; M18.2 Bilateral post-traumatic osteoarthritis of first carpometacarpal joints

== ENCOUNTER → 2025-06-11 | Outpatient (REF) | payer OTHER | LOC: M SFHCRHEU 10:31 | PROVIDERS: ATTEND Internal Medicine | DX: L40.50 Arthropathic psoriasis, unspecified (principal) ==